=== PATIENT | female | born 1965 | race Asian ===

== ENCOUNTER 2022-05-25 12:50 | Emergency (ER) | payer OTHER ==
[~2022-05-25] VITALS: Ht 172.7 cm; Wt 63.5 kg
--- NOTE | 2022-05-25 13:00 | NUR ---
57YO BIB DAUGHTER C/O TIGHT 10 CHEST PAIN WITH NO RADIATION AND SOB. PT STATES SUDDEN ONSET X2 HOURS. UPON ARRIVAL PT STATED UNABLE TO WALK, HAD UNSTEADY GAIT, WHEELCHAIR ASSISTED TO ROOM. PT PRESENTS WITH HACKING COUGH AND MILD NAUSEA. O2 98% ROOM AIR. REPORTS VOMITING X1 LAST NIGHT / X1 THIS MORNING. ALSO REPORTS BEING SICK WITH COUGH AND RUNNY NOSE X2 WEEKS. STATES TAKING DAYQUIL WITH MILD RELIEF. DENIES DIARHEA, ABDOMINAL PAIN OR DYSURIA. PT AAOX4, RESPIRATIONS EVEN AND UNALBORED. PT PUT ON MONITOR, BED AT LOWEST POSITION BED RAIL UP X1. *[facility]ION[facility] USED #[id number]
[2022-05-25 13:01] VITALS: BP 152/89
--- NOTE | 2022-05-25 13:10 | NUR ---
PATIENT WAS TAKEN TO BED 6
--- NOTE | 2022-05-25 13:15 | NUR ---
VANCE VINCENT AT BEDSIDE FOR EVALUATION
[2022-05-25] MEDS ORDERED: NACL 0.9% 1,000 ML IV ONE (13:25)
[2022-05-25] MEDS ORDERED: ASPIRIN 81 MG TAB.CHEW PO ONE (13:25)
[2022-05-25] MEDS ORDERED: ONDANSETRON 4 MG/2 ML VIAL IVP ONE (13:25)
[2022-05-25] MEDS ORDERED: KETOROLAC 30 MG/ML VIAL IVP ONE (13:25)
[2022-05-25 13:53] LABS: BASOPHILS % (AUTO) 0.4 % (0.0-2.0); EOSINOPHILS # (AUTO) 0.1 K/uL (0-0.4); EOSINOPHILS % (AUTO) 0.7 % (0.0-4.0); HEMATOCRIT 38.4 % (36-48); HEMOGLOBIN 12.7 g/dL (12.0-16.0); LYMPHOCYTES # (AUTO) 2.6 K/uL (2.5-16.5); LYMPHOCYTES % (AUTO) 26.7 % (20.5-51.1); MEAN CORPUSCULAR HEMOGLOBIN 28 pg (27-31); MEAN CORPUSCULAR HGB CONC 33 g/dL (33-37); MEAN CORPUSCULAR VOLUME 85.5 fL (80-94); MONOCYTES # (AUTO) 1.1 K/uL (0.8-1.0); MONOCYTES % (AUTO) 11.4 % (1.7-9.3); NEUTROPHILS # (AUTO) 5.8 K/uL (1.8-7.7); NEUTROPHILS % (AUTO) 60.8 % (42.2-75.2); PLATELET COUNT (AUTO) 292 K/uL (140-450); RED BLOOD CELL COUNT(AUTO) 4.49 MIL/uL (4.20-5.40); RED CELL DISTRIBUTION WIDTH 13.4 % (11.6-13.7); WHITE BLOOD COUNT (AUTO) 9.6 K/uL (4.8-10.8)
[2022-05-25 14:11] LABS: CARBON DIOXIDE 27.5 mmol/L (21-32); CREATININE 0.9 mg/dL (0.6-1.3); POTASSIUM 3.5 mmol/L (3.5-5.1); TOTAL BILIRUBIN 0.8 mg/dL (0.0-1.0)
--- NOTE | 2022-05-25 15:12 | NUR ---
PT SWABBED FOR COVID(CARLOS). WALKED AND HANDED TO LAB
[2022-05-25] MEDS ORDERED: PRED20TA5 PO (15:54)
[2022-05-25] MEDS ORDERED: ONDA8TAB87 PO (15:54)
--- NOTE | 2022-05-25 16:00 | NUR ---
Patient discharged with v/s stable. Written and verbal after care instructions given and explained. Patient alert, oriented and verbalized understanding of instructions. Ambulatory with steady gait. All questions addressed prior to discharge. ID band removed. Patient advised to follow up with PMD. Rx of PREDNISONE, ZOFRAN given. Patient educated on indication of medication including possible reaction and side effects. Opportunity to ask questions provided and answered.
--- NOTE | 2022-05-25 16:00 | NUR ---
The patient's care was reviewed and supervised by [facility], RN.
== END 2022-05-25 15:59 | disposition home or self-care (01) ==
LOC: MED 12:50
DX: R06.02 Shortness of breath (principal); Z20.822 Contact with and (suspected) exposure to COVID-19; R05.9 Cough, unspecified; R11.2 Nausea with vomiting, unspecified; E11.9 Type 2 diabetes mellitus without complications; I10 Essential (primary) hypertension
CPT/HCPCS: 36415; 71045; 80053; 81002; 81025; 83880; 84484; 85025; 87426; 93005; 96361; 96374; 96375; 99285; J1885; J2405; J7030; Q0092